=== PATIENT | female | born 1985 | race Asian ===

== ENCOUNTER 2020-12-18 10:57 | Outpatient (CLI) | payer BC, OTHER | END 2020-12-18 23:59 | disposition home or self-care (01) | LOC: INF 10:57 | PROVIDERS: ATTEND Internal Medicine | DX: Z23 Encounter for immunization (principal) ==

== ENCOUNTER 2021-01-15 10:27 | Outpatient (CLI) | payer BC, OTHER | END 2021-01-15 21:48 | disposition home or self-care (01) | LOC: INF 10:27 | PROVIDERS: ATTEND Internal Medicine | DX: Z23 Encounter for immunization (principal) | CPT/HCPCS: 96372 ==

== ENCOUNTER 2021-07-01 08:36 | Outpatient (CLI) | payer BC | END 2021-07-01 19:17 | disposition home or self-care (01) | LOC: MAMMO 08:36 | PROVIDERS: ATTEND Obstetrics & Gynecology | DX: N64.4 Mastodynia (principal) | CPT/HCPCS: G0279 ==